=== PATIENT | female | born 1930 | race Two or more races ===

== ENCOUNTER → 2017-05-29 | Emergency (ER) | payer OTHER ==
[~2017-05-29] VITALS: Ht 144.8 cm; Wt 43.5 kg
[~2017-05-29] MED LIST: ACIDOPHILUS1 EAC3 PO; CIPRO500 MG PO; CLARITIN PO; COUMADIN10 MG; INTEGRA PLUS CAPSULE PO; NEXIUM40 MG/PACK PO; NORTUSS-EX LIQ118 ML PO; NORVASC 5MG TAB PO; NORVASC5 MG; PRILOSEC10 MG; PROTONIX40 MG PO; TESSALON PERLE100 MG PO; ZITHROMAX TRI-500 MG PO; ZOCOR40 MG PO; ZoCOR 40MG TABLET PO
== END | disposition home or self-care (01) ==
LOC: ER 09:05
DX: S80.12XA Contusion of left lower leg, initial encounter (principal); W18.09XA Striking against other object with subsequent fall, initial encounter; Y93.89 Activity, other specified; Y92.488 Other paved roadways as the place of occurrence of the external cause; Y99.8 Other external cause status

== ENCOUNTER → 2017-06-01 | Outpatient (CLI) | payer OTHER | END | disposition home or self-care (01) | LOC: WOUND MED 09:39 → EDSTATUS 09:40 | DX: L97.822 Non-pressure chronic ulcer of other part of left lower leg with fat layer exposed (principal) | CPT/HCPCS: 11042; 11045; A4554; A4930; A6021; A6212; A6216; G0463 ==

== ENCOUNTER → 2017-06-12 | Outpatient (CLI) | payer OTHER ==
[~2017-06-12] MED LIST changes: +NORVASC5 MG PO; +PRILOSEC10 MG PO
== END | disposition home or self-care (01) ==
LOC: WOUND MED 09:53
DX: L97.822 Non-pressure chronic ulcer of other part of left lower leg with fat layer exposed (principal)
CPT/HCPCS: 11042; 11045; A4554; A4930; A6212; A6216

== ENCOUNTER → 2017-06-22 | Outpatient (CLI) | payer OTHER | END | disposition home or self-care (01) | LOC: WOUND MED 10:30 | DX: L97.822 Non-pressure chronic ulcer of other part of left lower leg with fat layer exposed (principal) | CPT/HCPCS: G0463; A4554; A4930; A6216 ==

== ENCOUNTER 2017-07-10 08:39 | Inpatient (IN) | payer OTHER ==
[~2017-07-10] VITALS: Ht 152.4 cm; Wt 49.9 kg
[~2017-07-10 08:39] MED LIST changes: -NORVASC5 MG PO; -PRILOSEC10 MG PO
[2017-07-13] MEDS ORDERED: PRILOSEC10 MG PO (07:14)
[2017-07-13] MEDS ORDERED: NORVASC5 MG PO (07:14)
== END 2017-07-13 09:02 | disposition home or self-care (01) | DRG 378 ==
LOC: ER 08:39 → SEC-K 14:27 → MEDJ 14:27
PROC: 30233N1 Transfusion of Nonautologous Red Blood Cells into Peripheral Vein, Percutaneous Approach (ICD-10-PCS; principal; 2017-07-10)
PROC: BW40ZZZ Ultrasonography of Abdomen (ICD-10-PCS; 2017-07-10)
DX: K92.2 Gastrointestinal hemorrhage, unspecified (principal); N39.0 Urinary tract infection, site not specified; N17.8 Other acute kidney failure; E86.0 Dehydration; D64.89 Other specified anemias; I50.9 Heart failure, unspecified; J45.998 Other asthma; S80.12XA Contusion of left lower leg, initial encounter; X58.XXXA Exposure to other specified factors, initial encounter; Y93.89 Activity, other specified; Y92.89 Other specified places as the place of occurrence of the external cause; Y99.8 Other external cause status

== ENCOUNTER 2018-01-02 09:22 | Inpatient (IN) | payer OTHER ==
[~2018-01-02] VITALS: Ht 152.4 cm; Wt 38.6 kg
[~2018-01-02 09:22] MED LIST changes: +NORVASC5 MG PO; +PRILOSEC10 MG PO
[2018-01-05] MEDS ORDERED: NORVASC5 MG PO (07:11)
[2018-01-05] MEDS ORDERED: CLOPIDOGREL BIS75 MG PO (07:11)
== END 2018-01-05 15:00 | disposition home or self-care (01) | DRG 280 ==
LOC: ER 09:22 → MEDI 18:25
PROC: 4A12X4Z Monitoring of Cardiac Electrical Activity, External Approach (ICD-10-PCS; principal; 2018-01-02)
PROC: B246ZZZ Ultrasonography of Right and Left Heart (ICD-10-PCS; 2018-01-02)
PROC: BW28ZZZ Computerized Tomography (CT Scan) of Head (ICD-10-PCS; 2018-01-02)
PROC: 3E0F7GC Introduction of Other Therapeutic Substance into Respiratory Tract, Via Natural or Artificial Opening (ICD-10-PCS; 2018-01-02)
DX: I21.4 Non-ST elevation (NSTEMI) myocardial infarction (principal); I50.33 Acute on chronic diastolic (congestive) heart failure; I11.0 Hypertensive heart disease with heart failure; R55 Syncope and collapse; R42 Dizziness and giddiness; K52.89 Other specified noninfective gastroenteritis and colitis; E86.0 Dehydration; I35.0 Nonrheumatic aortic (valve) stenosis; S00.83XA Contusion of other part of head, initial encounter; W18.39XA Other fall on same level, initial encounter; Y93.89 Activity, other specified; Y92.89 Other specified places as the place of occurrence of the external cause; Y99.8 Other external cause status; S30.0XXA Contusion of lower back and pelvis, initial encounter